=== PATIENT | female | born 1985 | race Caucasian/White ===

== ENCOUNTER 2016-05-13 17:47 | Emergency (ER) | payer MEDICAID ==
[~2016-05-13] VITALS: Ht 175.3 cm; Wt 79.5 kg
[~2016-05-13 17:47] MED LIST: ALESSE PO; AMITRIPTYLINE H25 M1 PO; BIRTH CONTROL PILLS; CEPHALEXIN250 M2 PO; CEPHALEXIN500 M1; CLARITIN 1010 MG/TAB PO; CLINDAMYCIN300 MG PO; COLACE 100100 MG/CAP PO; DOXYCYCLINE 10100 MG PO; FLEXERIL 1010 MG/TAB PO; IMITREX50 MG PO; IRON325 MG PO; LORTAB 5/500 501 TAB PO; MACROBID100 M1 PO; MEDROL 4MG DOSPA4 MG PO; METRONIDAZOLE500 MG PO; MUCINEX1200 MG PO; NAPROSYN500 MG PO; NEURONTIN100 MG/CAP; NO HOME MEDICATIONS; NORCO 325 MG-51 TAB PO; NORCO 325 MG-7.1 TAB PO; PERCOCET 325 MG1 TA2 PO; PERCOCET 325 MG1 TAB PO; PHENERGAN 25 TA25 MG PO; PHENERGAN25 MG RC; PREDNISONE20 MG PO; PRENATAL1 TA1 PO; PROZAC 20MG20 MG PO; ROBAXIN 75750 MG/TAB PO; TYLENOL/CODEINE1 ML PO; VIBRAMYCININJ PO; ZITHROMAX250 M1 PO; ZOLOFT 100MG100 MG PO
[2016-05-13 17:50] VITALS: TEMP 98.4
[2016-05-13 23:30] VITALS: BP 122/86
[2016-05-13 23:55] LABS: BASO # 0.1 (0.0-0.2); BASO % 1.4 % (0.0-2.0); EOS # 0.2 (0.0-0.7); EOS % 2.5 % (0-4.0); GRAN % 52.2 % (42.2-75.2); HEMATOCRIT 40.4 % (37.0-47.0); LYMPH % 31.5 % (20.0-51.0); MEAN CELL VOLUME 90 fl (80.0-100.0); MEAN CORPUSCULAR HEMOGLOBIN 29 pg (27.0-31.0); MEAN CORPUSCULAR HGB CONC 32 g/dl (33.0-37.0); MEAN PLATELET VOLUME 9.5 fl (7.4-10.4); MONO # 1.2 (0.1-0.6); MONO % 12.2 % (1.7-9.3); PLATELET COUNT 314 K/mm3 (130-400); RED BLOOD COUNT 4.47 M/mm3 (4.10-5.30); REDCELL DISTRIBUTION WIDTH-CV 14.1 % (11.5-14.5); WHITE BLOOD COUNT 9.6 K/mm3 (4.8-10.8)
[2016-05-14 00:01] LABS: ADJUSTED CALCIUM 8.9 mg/dL (8.4-10.2); ALANINE AMINOTRANSFERASE 32 U/L (9-52); ALBUMIN 4.3 gm/dL (3.5-5.0); ALKALINE PHOSPHATASE 48 U/L (50-136); ANION GAP 9 mmol/L (7-16); BILIRUBIN,TOTAL 0.8 mg/dL (0.0-1.0); BLOOD UREA NITROGEN 18 mg/dL (7-17); CALCIUM 9.1 mg/dL (8.4-10.2); CARBON DIOXIDE 30 mmol/L (22-30); CHLORIDE 104 mmol/L (98-107); GLUCOSE 89 mg/dL (74-106); POTASSIUM 3.8 mmol/L (3.4-5.0); SODIUM 143 mmol/L (137-145)
[2016-05-14 00:02] LABS: ACETAMINOPHEN < 10 ug/mL (10-30)
[2016-05-14 00:19] LABS: AMPHETAMINE URINE POSITIVE; BARBITURATES URINE NEGATIVE; BENZODIAZEPINES URINE POSITIVE; BUPRENORPHINE URINE NEGATIVE; METHADONE URINE NEGATIVE; OPIATES URINE NEGATIVE; OXYCODONE URINE NEGATIVE; PHENCYCLIDINE URINE NEGATIVE; PROPOXYPHENE URINE NEGATIVE; THC CANNABINOIDS URINE POSITIVE
[2016-05-14 00:56] VITALS: PULSE 90
== END 2016-05-14 00:50 | disposition home or self-care (01) ==
LOC: COL.ER 17:47
PROVIDERS: Emergency Medicine
DX: F15.10 Other stimulant abuse, uncomplicated (principal); F13.10 Sedative, hypnotic or anxiolytic abuse, uncomplicated

== ENCOUNTER 2016-12-28 13:36 | Emergency (ER) | payer MEDICAID ==
[~2016-12-28] VITALS: Ht 175.3 cm; Wt 90.9 kg
[2016-12-28 13:38] VITALS: BP 123/73; TEMP 98.1
[2016-12-28] MEDS ORDERED: LAMICTAL 25MG T25 MG (13:41)
[2016-12-28] MEDS ORDERED: MIRTAZAPINE7.5 MG (13:41)
[2016-12-28] MEDS ORDERED: VIVLODEX5 MG (13:41)
[2016-12-28] MEDS ORDERED: ATARAX 10MG10 MG/TAB (13:41)
[2016-12-28 16:05] VITALS: PULSE 91
[2016-12-28] MEDS ORDERED: ZOFRAN 4MG T4 MG/TAB PO (16:07)
== END 2016-12-28 16:08 | disposition home or self-care (01) ==
LOC: COL.ER 13:36
DX: K52.9 Noninfective gastroenteritis and colitis, unspecified (principal); F17.210 Nicotine dependence, cigarettes, uncomplicated
CPT/HCPCS: J1200; J1885; J2405; J7030

== ENCOUNTER 2017-12-20 12:22 | Emergency (ER) | payer SELFPAY ==
[~2017-12-20] VITALS: Ht 175.3 cm; Wt 89.0 kg
[~2017-12-20 12:22] MED LIST changes: +ATARAX 10MG10 MG/TAB; +LAMICTAL 25MG T25 MG; +MIRTAZAPINE7.5 MG; +VIVLODEX5 MG; +ZOFRAN 4MG T4 MG/TAB PO
[2017-12-20 12:27] VITALS: TEMP 97.5
[2017-12-20 13:25] LABS: BASO # 0.1 (0.0-0.2); BASO % 0.6 % (0.0-2.0); EOS # 0.1 (0.0-0.7); EOS % 0.9 % (0-4.0); GRAN # 9.5 (1.4-6.5); GRAN % 76.1 % (42.2-75.2); HEMATOCRIT 43.3 % (37.0-47.0); HEMOGLOBIN 14.2 g/dl (12.5-16.0); LYMPH # 1.6 (1.2-3.4); LYMPH % 12.7 % (20.0-51.0); MEAN CELL VOLUME 91 fl (80.0-100.0); MEAN CORPUSCULAR HEMOGLOBIN 30 pg (27.0-31.0); MEAN CORPUSCULAR HGB CONC 33 g/dl (33.0-37.0); MEAN PLATELET VOLUME 10.1 fl (7.4-10.4); MONO # 1.2 (0.1-0.6); MONO % 9.5 % (1.7-9.3); PLATELET COUNT 306 K/mm3 (130-400); RED BLOOD COUNT 4.78 M/mm3 (4.10-5.30); REDCELL DISTRIBUTION WIDTH-CV 13.9 % (11.5-14.5)
[2017-12-20 13:39] LABS: ALBUMIN 4.1 gm/dL (3.5-5.0); BILIRUBIN,TOTAL 0.4 mg/dL (0.0-1.0); C-REACTIVE PROTEIN 2.5 mg/dL (0.0-0.9); CALCIUM 9.1 mg/dL (8.4-10.2); CREATININE, serum 0.64 mg/dL (0.52-1.25); POTASSIUM 3.7 mmol/L (3.4-5.0); TOTAL PROTEIN 7.2 gm/dL (6.4-8.2)
[2017-12-20 13:40] LABS: COLLECTION METHOD CLEAN CATCH
[2017-12-20 13:51] LABS: AMORPHOUS CRYSTAL Present /uL; MUCOUS Present /lpf; PH 7 (5-8); URINE APPEARANCE Hazy; URINE BACTERIA Many /hpf; URINE BILIRUBIN Negative (NEGATIVE); URINE BLOOD Negative (NEGATIVE); URINE COLOR Yellow; URINE GLUCOSE Negative (NEGATIVE); URINE KETONE Negative (NEGATIVE); URINE LEUKOCYTE ESTERASE 1+ (NEGATIVE); URINE NITRATE Positive (NEGATIVE); URINE PROTEIN(semi-quant) Negative (NEGATIVE); URINE RBC 0-2 /hpf
[2017-12-20] MEDS ORDERED: CEPHALEXIN500 M1 PO (13:58)
[2017-12-20 14:20] VITALS: BP 114/67; PULSE 71
== END 2017-12-20 14:20 | disposition home or self-care (01) ==
LOC: COL.ER 12:22
PROVIDERS: Physician Assistant
DX: N12 Tubulo-interstitial nephritis, not specified as acute or chronic (principal); F17.210 Nicotine dependence, cigarettes, uncomplicated; Z88.0 Allergy status to penicillin; Z88.2 Allergy status to sulfonamides; Z98.51 Tubal ligation status; Z98.890 Other specified postprocedural states
CPT/HCPCS: J0696; J1885; J2405; J7030